=== PATIENT | female | born 1990 | race Caucasian/White ===

== ENCOUNTER 2016-07-21 08:49 | Emergency (ER) | payer BC ==
[~2016-07-21] VITALS: Ht 165.1 cm; Wt 48.5 kg
[2016-07-21 08:49] VITALS: BP 144/95
[2016-07-21] MEDS ORDERED: ADDE30CA PO (09:08)
[2016-07-21] MEDS ORDERED: ADDE5TAB5 PO (09:08)
[2016-07-21] MEDS ORDERED: TEMA15CA2 PO (09:08)
[2016-07-21] MEDS ORDERED: BACIOIN23 OS (10:07)
[2016-07-21] MEDS ORDERED: predniSONE 20 MG TAB As Ordered ONE (10:08)
[2016-07-21] MEDS ORDERED: predniSONE 20 MG TAB PO ONE (10:15)
== END 2016-07-21 10:19 | disposition home or self-care (01) ==
LOC: M ED 09:56
DX: H00.025 Hordeolum internum left lower eyelid (principal); G43.909 Migraine, unspecified, not intractable, without status migrainosus; K57.90 Diverticulosis of intestine, part unspecified, without perforation or abscess without bleeding; Z79.899 Other long term (current) drug therapy